=== PATIENT | male | born 1995 | race Two or more races ===

== ENCOUNTER 2022-02-15 14:59 | Emergency (ER) | payer OTHER ==
[~2022-02-15] VITALS: Ht 170.2 cm; Wt 95.5 kg
[2022-02-15 15:46] VITALS: BP 138/95
[2022-02-15] MEDS ORDERED: cefTRIAXone SOD 1,000 MG VL IM ONE (16:15)
[2022-02-15] MEDS ORDERED: IBUP800T27 PO (17:08)
[2022-02-15] MEDS ORDERED: PENI500T2 PO (17:08)
[2022-02-15] MEDS ORDERED: AZIT500T66 PO (17:36)
== END 2022-02-15 17:15 | disposition home or self-care (01) ==
LOC: ER 14:59
DX: J03.90 Acute tonsillitis, unspecified (principal); Z79.1 Long term (current) use of non-steroidal anti-inflammatories (NSAID); Z79.2 Long term (current) use of antibiotics
CPT/HCPCS: 71046; 87070; 87880; 96372; 99284; J0696